=== PATIENT | male | born 1945 | race Caucasian/White ===

== ENCOUNTER → 2016-09-08 | Outpatient (CLI) | payer OTHER ==
[~2016-09-08] MED LIST: ASPCH81X PO; CALC-393 PO; COEN50CA22 PO; FLAX1CAP11 PO; OMEG10007 PO
[2016-09-08 12:49] LABS: ALT/SGPT 35 U/L (12-78); AST/SGOT 19 U/L (15-37); BLOOD UREA NITROGEN 19 mg/dl (7-18); BUN/CREATININE RATIO 19.2 (10-20); CALCIUM 8.8 mg/dl (8.5-10.1); CARBON DIOXIDE 28 mmol/L (21-32); CHLORIDE 109 mmol/L (98-107); GLUCOSE 94 mg/dl (70-99); POTASSIUM 4.2 mmol/L (3.5-5.1); SODIUM 142 mmol/L (136-145)
[2016-09-08 12:51] LABS: ALB/GLOB RATIO 1.2 (0.9-2); ALKALINE PHOSPHATASE 93 U/L (45-117); CHOLESTEROL 163 mg/dl (0-200); CHOLESTEROL/HDL RATIO 3.6; HDL CHOLESTEROL 45 mg/dl; LDL CHOLESTEROL CALCULATED 97 mg/dl; TRIGLYCERIDES 105 mg/dl (0-150); VERY LOW DENSITY LIPOPROT CALC 21 mg/dl
== END | disposition home or self-care (01) ==
LOC: C.LAB1850 10:00
PROVIDERS: ATTEND Internal Medicine
DX: Z86.39 Personal history of other endocrine, nutritional and metabolic disease (principal)

== ENCOUNTER → 2017-09-15 | Outpatient (CLI) | payer OTHER ==
[2017-09-15 09:33] LABS: BASO % 0.3 %; BASO ABS # 0.02 K/uL (0-0.2); EOS % 3.3 %; EOS ABS # 0.21 K/uL (0-0.5); HEMATOCRIT 39.4 % (42-52); HEMOGLOBIN 13.8 g/dL (14.0-18.0); IG# 0.02 K/uL (0.00-0.02); LYMPH % 43.9 %; MEAN CELL VOLUME 94.5 fL (80-100); MEAN CORPUSCULAR HEMOGLOBIN 33.1 pg (25-34); MEAN PLATELET VOLUME 10.5 fL (7.4-10.4); MONO % 12.4 %; MONO ABS # 0.79 K/uL (0.11-0.59); NEUT % 39.8 %; NEUT ABS # 2.54 K/uL (1.4-6.5); PLATELET COUNT 215 K/uL (130-400); RED CELL DISTRIBUTION WIDTH CV 12.8 % (11.5-14.5); WHITE BLOOD COUNT 6.38 K/uL (4.8-10.8)
[2017-09-15 09:56] LABS: ALBUMIN 3.8 gm/dl (3.4-5.0); ALKALINE PHOSPHATASE 92 U/L (45-117); ALT/SGPT 35 U/L (12-78); BLOOD UREA NITROGEN 21 mg/dl (7-18); CALCIUM 9.1 mg/dl (8.5-10.1); CARBON DIOXIDE 27 mmol/L (21-32); CREATININE 0.98 mg/dl (0.60-1.40); GLUCOSE 88 mg/dl (70-99); POTASSIUM 3.7 mmol/L (3.5-5.1); SODIUM 138 mmol/L (136-145); TOTAL PROTEIN 7.3 gm/dl (6.4-8.2)
[2017-09-15 10:00] LABS: AST/SGOT 22 U/L (15-37); CHOLESTEROL 171 mg/dl (0-200); LDL CHOLESTEROL CALCULATED 105 mg/dl
== END | disposition home or self-care (01) ==
LOC: C.LAB1850 07:13
PROVIDERS: ATTEND Internal Medicine
DX: R53.83 Other fatigue (principal); Z11.59 Encounter for screening for other viral diseases; R20.2 Paresthesia of skin; Z86.39 Personal history of other endocrine, nutritional and metabolic disease

== ENCOUNTER 2021-04-27 08:00 | Inpatient (IN) ==
--- NOTE | 2021-04-02 09:09 | PAT Medication Instructions ---
Medication Instructions Date of Service April 02, 2021 Home Medications Medication Instructions Recorded melatonin 5 mg capsule 5 mg PO HS PRN #1 cap 03/27/19 sodium,potassium,mag sulfates 17.5 See Rx Instructions PO .COMPLEX 03/19/21 gram-3.13 gram-1.6 gram oral soln #354 ml (Suprep Bowel Prep Kit) coenzyme Q10 50 mg capsule 200 mg PO QAM flaxseed oil 1,000 mg capsule 1,000 mg PO TID omega-3 acid ethyl esters 1 gram capsule 1 cap PO TID psyllium husk 3.4 gram/5.4 gram oral powder 1 tbs PO QPM zolpidem 10 mg tablet 5 - 10 mg PO HS PRN melatonin 5 mg capsule 5 mg PO HS PRN aspirin 81 mg tablet,delayed release 81 mg PO HS ASK your prescriber and surgeon aspirin 81 mg tablet,delayed release 81 mg PO HS STOP taking 2 weeks before surgery (or as soon as possible if surgery is within 2 weeks) coenzyme Q10 50 mg capsule 200 mg PO QAM flaxseed oil 1,000 mg capsule 1,000 mg PO TID omega-3 acid ethyl esters 1 gram capsule 1 cap PO TID Take evening before surgery psyllium husk 3.4 gram/5.4 gram oral powder 1 tbs PO QPM zolpidem 10 mg tablet 5 - 10 mg PO HS PRN (if needed) melatonin 5 mg capsule 5 mg PO HS PRN (if needed) Other Notes If you have any questions please call us at [phone] or [phone] or [phone] or [phone]
--- NOTE | 2021-04-05 13:35 | Anesthesiology Consultation ---
Date of Service April 05, 2021 Assessment & Plan (1) Encounter for pre-operative examination: - COVID screening: Per assessment on 04/05/2021: Travel screen negative, no known COVID-19 positive contacts or current COVID-19 related symptoms. Patient vaccinated. He states is planning drive to [place] with his 04/18/2021 to visit 3 additional family members including 4.5 year old and current plans are that he would not be back by needed interval for pre-op COVID testing. He is aware of th is necessity including need to follow CDC guidelines closely. He states will further discuss with family and review plan adjustments. Coordination between anesthesia department and urology office with patient electing plan to have COVID testing done am day before surgery understanding that would not have surgery time until resulted which may be day of surgery and that delay/if issues arise could result in surgery re-schedule. He verbalized full understanding and wishes to proceed with this plan accepting all risk. Chart Review Chart Review: Acceptable Risk for Surgery and Patient seen in Pre Admission Testing Teaching & Discussion Pre-Anesthesia Teaching/Discussion Notes: Instructed NPO after midnight before surgery, except medications with 15 cc of water. Medication instructions provided according to the PAT guidelines. History Surgery Operation Date: 04/27/21 09:50 Proposed Procedures p Laparoscopic Robotic Assisted Radical Prostatectomy, Possible Open, Possible Pelvic Lymph Node Dissection, Possible Suprapubic Tube Placement - Abe Casillas MD Height/Weight Height: 5 ft 8 in Weight: 82.3 kg Allergies Allergy/AdvReac Type Severity Reaction Status Date / Time No Known Drug Allergies Allergy Unknown . Verified 04/05/21 16:13 Medications Home Medications Medication Instructions Recorded Confirmed Last Taken coenzyme Q10 50 mg capsule 200 mg PO QAM cap 03/26/19 04/05/21 Unknown flaxseed oil 1,000 mg capsule 1,000 mg PO TID cap 03/26/19 04/05/21 Unknown omega-3 acid ethyl esters 1 gram 1 cap PO TID #30 cap 03/26/19 04/05/21 Unknown capsule psyllium husk 3.4 gram/5.4 gram 1 tbs PO QPM gm 03/26/19 04/05/21 Unknown oral powder zolpidem 10 mg tablet 5 - 10 mg PO HS PRN tab 03/26/19 04/05/21 Unknown melatonin 5 mg capsule 5 mg PO HS PRN #1 cap 03/27/19 04/05/21 Unknown aspirin 81 mg tablet,delayed 81 mg PO HS 04/01/21 04/05/21 Unknown release Past Medical History Medical History (Updated 04/05/21 @ 18:37 by PAULINO Cordero) Anxiety Arthralgia of multiple sites BPH (benign prostatic hyperplasia) Chronic prostatitis without hematuria COVID-19 virus detected Dx mid 12/2020 (through random testing/asymptomatic) Headache Occasional, chronic, stable, resolves with Excedrin, following with PCP History of anemia History of hyperlipidemia Insomnia Lumbar radiculopathy Osteoarthritis Prostate cancer Seborrheic keratosis Follows with dermatology annually, chronic, stable per pt Patient denies h/o stroke, seizures, heart attack, heart failure, DM, HTN, blood clots or blood transfusions. Exercise / Class Metabolic Activity II 4-5 Yardwork/Stairs/Walk up hill (no CP or SOB with 1 FOS) Past Family History Family History Father Colorectal cancer Mother Stroke Denies family history of Ovarian cancer Prostate cancer Diabetes Bipolar disorder Myocardial infarction Past Surgical History Surgical History History of colonoscopy History of esophagogastroduodenoscopy (EGD) S/P cholecystectomy S/P hernia repair S/P tonsillectomy Past Anesthesia History No Hx of Anesthesia Complications and No Family Hx of Anesthesia Complications History of PONV No Hx of PONV and No Hx of Motion Sickness Social History Smoking Status: Former smoker Do You Dip or Chew Tobacco: No Smoking End Date: quit 44 yrs ago, 1 pack/wk x 14 yrs Hx Alcohol Use: Yes Alcohol type: wine alcohol intake frequency: a few times a week (1 glass of wine) Hx Substance Use: No substance use type: does not use Review of Systems Infrequent snoring, denies witnessed apneas or sleep studies. Patient denies chest pain, shortness of breath, dyspnea on exertion, reflux, fever, chills, cough, wheezing, or palpitations. Physical Exam Vital Signs Vitals BP 162/82 P 71 TEMP 97.7 SP02 98% on RA RESP 17 Physical Full cervical extension range of motion without pain Full TMJ range of motion TMD 3.5 finger breaths Mallampati Score 3 Dentition: intact, denies missing, loose, chipped teeth, caps/crowns or implants Lungs: normal respiratory effort. Clear throughout to auscultation, no adventitious breath sounds Cardiac: regular rate and rhythm, no murmurs noted Carotid arteries: negative bruit bilat Extremities: no distal extremity edema Lab Results Anesthesia Preop Results Results Anesthesia Widget: WBC 7.50 K/uL (4.8-10.8) 04/05/21 Hgb 13.1 g/dL (14.0-18.0) L 04/05/21 Hct 37.4 % (42-52) L 04/05/21 Plt 240 K/uL (130-400) 04/05/21 Na 141 mmol/L (136-145) 04/05/21 K 3.8 mmol/L (3.5-5.1) 04/05/21 Cl 108 mmol/L (98-107) H 04/05/21 CO2 25 mmol/L (21-32) 04/05/21 BUN 22 mg/dl (7-18) H 04/05/21 Creat 1.08 mg/dl (0.6-1.4) 04/05/21 Glucose Level 112 mg/dl (70-99) H 04/05/21 PT 10.4 Seconds (9.0-12.0) 04/05/21 INR 1.0 (0.9-1.1) 04/05/21 Urine Color Yellow 04/05/21 Urine Appearance Clear (Clear) 04/05/21 Urine pH 5.0 (4.5-7.5) 04/05/21 Urine Specific [place] 1.017 (1.000-1.030) 04/05/21 Urine Protein Negative (Negative) 04/05/21 Urine Glucose (UA) Negative (Negative) 04/05/21 Urine Ketones Negative (Negative) 04/05/21 Urine Blood Negative (Negative) 04/05/21 Urine Nitrite Negative (Negative) 04/05/21 Urine Bilirubin Negative (Negative) 04/05/21 Urine Urobilinogen Negative (Negative) 04/05/21 Urine Leukocyte Esterase Negative (Negative) 04/05/21 Blood Type O Positive 04/05/21 Antibody Screen NEGATIVE 04/05/21 Testing Electrocardiogram Date: 04/05/21 Sinus rhythm with 1st degree A-V block, rate 66 bpm. Right bundle branch block Abnormal ECG No previous ECGs available Confirmed by Josiah Garner. Chest X-Ray Date: 04/05/21 IMPRESSION: No acute cardiopulmonary findings.
[~2021-04-27 08:00] MED LIST changes: -ASPCH81X PO; -CALC-393 PO; -COEN50CA22 PO; -FLAX1CAP11 PO; +HEPARIN SOD 5,000 UNIT/0.5 ML VIAL SQ SCH; +LACTATED RINGER'S 1,000 ML IV SCH; +LR 15ML/HR IV SCH; -OMEG10007 PO; +ceFAZolin 2000MG 2,000 MG/15 ML SYR IV SCH
[2021-04-27] MEDS ORDERED: ATROPINE SULFATE 0.1 MG/ML 10ML SYR IV PRN (10:16)
[2021-04-27] MEDS ORDERED: HYDROmorphone INJ 2 MG/ML SYR/VIAL IV PRN (10:16)
[2021-04-27] MEDS ORDERED: ePHEDrine sulfate 50 MG/ML AMP IV PRN (10:16)
[2021-04-27] MEDS ORDERED: ONDANSETRON INJ 2 MG/ML 2 ML VIAL IV PRN ×2 (10:16→18:35)
--- NOTE | 2021-04-27 10:16 | Anesthesiology Consultation ---
Date of Service April 27, 2021 Assessment & Plan Chart Review Chart Review: Acceptable Risk for Surgery and Patient NOT seen in Pre Admission Testing Consults Requested none ASA ASA2 Proposed Anesthesia Anesthesia Type: General Risk / Benefits Reviewed With: PT / POA / Parent / Guardian, Accepts Plan and Informed Consent Obtained History Surgery Operation Date: 04/27/21 09:50 Proposed Procedures p Laparoscopic Robotic Assisted Radical Prostatectomy, Possible Open, Possible Pelvic Lymph Node Dissection, Possible Suprapubic Tube Placement - Abe Casillas MD Height/Weight Height: 5 ft 8 in Weight: 80.6 kg Allergies Allergy/AdvReac Type Severity Reaction Status Date / Time No Known Drug Allergies Allergy Unknown . Verified 04/27/21 08:49 Medications Home Medications Medication Instructions Recorded Confirmed Last Taken coenzyme Q10 50 mg capsule 200 mg PO QAM cap 03/26/19 04/27/21 04/06/21 07:30 flaxseed oil 1,000 mg capsule 1,000 mg PO TID cap 03/26/19 04/27/21 04/06/21 18:00 omega-3 acid ethyl esters 1 gram 1 cap PO TID #30 cap 03/26/19 04/27/21 04/06/21 18:00 capsule psyllium husk 3.4 gram/5.4 gram 1 tbs PO QPM gm 03/26/19 04/27/21 04/20/21 10:00 oral powder zolpidem 10 mg tablet 5 - 10 mg PO HS PRN tab 03/26/19 04/27/21 Unknown melatonin 5 mg capsule 5 mg PO HS PRN #1 cap 03/27/19 04/27/21 04/06/21 23:00 aspirin 81 mg tablet,delayed 81 mg PO HS 04/01/21 04/27/21 04/06/21 23:00 release Active Medications Generic Name Dose Route Start Last Admin Trade Name Freq PRN Reason Stop Dose Admin Heparin Sodium (Porcine) 5,000 units 04/27/21 06:00 04/27/21 08:57 Heparin Sod 5,000 Unit/0.5 Ml Vial SQ 04/27/21 18:00 5,000 units PREOP ROBBIE Administration Lactated Ringer's 1,000 mls @ 15 mls/hr 04/27/21 06:00 04/27/21 08:56 Lr IV 04/28/21 05:59 15 mls/hr .Q24H ROBBIE Administration NPO Date Last Intake of Fluids: 04/26/21 Time Last Intake of Fluids: 22:30 Date Last Intake of Solids: 04/26/21 Last Intake of Solids Comment: 0800 Past Medical History Medical History Anxiety Arthralgia of multiple sites BPH (benign prostatic hyperplasia) Chronic prostatitis without hematuria COVID-19 virus detected Dx mid 12/2020 (through random testing/asymptomatic) Headache Occasional, chronic, stable, resolves with Excedrin, following with PCP History of anemia History of hyperlipidemia Insomnia Lumbar radiculopathy Osteoarthritis Prostate cancer Seborrheic keratosis Follows with dermatology annually, chronic, stable per pt Exercise / Class Metabolic Activity II 4-5 Yardwork/Stairs/Walk up hill Past Family History Family History Father Colorectal cancer Mother Stroke Denies family history of Ovarian cancer Prostate cancer Diabetes Bipolar disorder Myocardial infarction Past Surgical History Surgical History History of colonoscopy History of esophagogastroduodenoscopy (EGD) S/P cholecystectomy S/P hernia repair S/P tonsillectomy Past Anesthesia History No Hx of Anesthesia Complications and No Family Hx of Anesthesia Complications History of PONV No Hx of PONV and No Hx of Motion Sickness Social History Smoking Status: Former smoker Do You Dip or Chew Tobacco: No Smoking End Date: quit 44 yrs ago, 1 pack/wk x 14 yrs Hx Alcohol Use: Yes Alcohol type: wine alcohol intake frequency: a few times a week (1 glass of wine) Hx Substance Use: No substance use type: does not use Physical Exam Vital Signs Last Vital Signs Temp 37 C 04/27/21 08:20 Pulse 72 04/27/21 08:20 Resp 20 04/27/21 08:20 BP 167/86 H 04/27/21 08:20 Pulse Ox 98 04/27/21 08:20 ENMT Mouth: no dentition abnormality Thyromental Distance: > or= 3.5 Finger Breadths Mallampati Class: II Neck normal visual inspection Respiratory normal respiratory effort Auscultation: lungs clear to auscultation bilaterally Cardiovascular Rate/Rhythm: regular rate and regular rhythm Psychiatric Orientation: alert Testing Electrocardiogram Date: 04/05/21 Sinus rhythm with 1st degree A-V block, rate 66 bpm. Right bundle branch block Abnormal ECG No previous ECGs available Confirmed by Josiah Garner. Chest X-Ray Date: 04/05/21 IMPRESSION: No acute cardiopulmonary findings.
[2021-04-27] MEDS ORDERED: ROCURONIUM BROMIDE 10 MG/ML 5 ML VIAL IV ONE ×2 (10:42→13:03)
[2021-04-27] MEDS ORDERED: PROPOFOL IV EMULSION 10 MG/ML 20 ML VIAL IV ONE (10:42)
[2021-04-27] MEDS ORDERED: fentaNYL citrate 100 MCG/2 ML VIAL ONE ×2 (10:42→13:03)
[2021-04-27] MEDS ORDERED: ONDANSETRON INJ 2 MG/ML 2 ML VIAL ONE (10:42)
[2021-04-27] MEDS ORDERED: LIDOCAINE 2% 2 ML VIAL/AMP(20MG/ML) INFIL ONE (10:42)
[2021-04-27] MEDS ORDERED: DEXAMETHASONE SOD INJ 4 MG/ML VIAL ONE (10:42)
--- NOTE | 2021-04-27 11:19 | History & Physical Bridge Note ---
Date of Service April 27, 2021 History & Physical Bridge Note I have examined the patient, reviewed the History & Physical and in the interval since the performance of the History & Physical I have noted the following changes of clinical significance: no changes noted
[2021-04-27] MEDS ORDERED: MIDAZOLAM HCL 1 MG/ML 2ML VIAL ONE (11:50)
[2021-04-27] MEDS ORDERED: BELLADONNA/OPIUM SUPP 60 MG SUPP PR ONE (11:50)
[2021-04-27] MEDS ORDERED: BUPIVACAINE 0.5 % 5 MG/1 ML MPF 30ML VIAL ONE (11:54)
[2021-04-27] MEDS ORDERED: SURGICEL ABSORB HEMOSTAT 2IN X 14IN TOP ONE (13:10)
[2021-04-27] MEDS ORDERED: KETOROLAC 30 MG/ML VIAL ONE (15:04)
[2021-04-27 15:47] LABS: Basophils # (auto) 0.02 K/uL (0-0.2); Basophils % (auto) 0.1 %; Eosinophils # (auto) 0.02 K/uL (0-0.5); Eosinophils % (auto) 0.1 %; Hematocrit (blood only) 36.9 % (42-52); Hemoglobin 12.7 g/dL (14.0-18.0); Immature Granulocytes # (auto) 0.03 K/uL (0.00-0.02); Immature Granulocytes % (auto) 0.2 %; Lymphocytes # (auto) 1.58 K/uL (1.2-3.4); Lymphocytes % (auto) 8.8 %; Mean Corpuscular Hemoglobin 33.1 pg (25-34); Mean Corpuscular Volume 96.1 fL (80-100); Mean Platelet Volume 10.1 fL (7.4-10.4); Monocytes # (auto) 0.56 K/uL (0.11-0.59); Monocytes % (auto) 3.1 %; Neutrophils # (auto) 15.65 K/uL (1.4-6.5); Neutrophils % (auto) 87.7 %; Nucleated RBC # (auto) 0.03 K/uL (0-0); Nucleated RBC % (auto) 0.2 %; Platelet Count 229 K/uL (130-400); RDW Standard Deviation 45.2 fL (36.4-46.3); Red Blood Count 3.84 M/uL (4.7-6.1); White Blood Count 17.86 K/uL (4.8-10.8)
[2021-04-27] MEDS: fentaNYL citrate 100 MCG/2 ML VIAL IV PRN ×2 (15:48→16:30)
--- NOTE | 2021-04-27 15:52 | Anesthesiology Progress Note ---
Date of Service April 27, 2021 Anesthesia Post Procedure Vital Signs Vital Signs: Temp Pulse Pulse Resp BP Pulse Ox 04/27/21 15:40 66 18 121/64 99 04/27/21 15:31 36.6 C 70 20 124/60 99 04/27/21 08:20 37 C 72 20 167/86 H 98 Transfer of Care Handoff Completed per policy Notes Mental Status: alert / awake / arousable Patient Amnestic to Procedure: Yes Nausea / Vomiting: adequately controlled Pain: adequately controlled Airway Patency, RR, SpO2: stable & adequate BP & HR: stable & adequate Hydration State: stable & adequate Anesthetic Complications: no major complications apparent
[2021-04-27 15:56] LABS: Mean Corpuscular Hgb Conc 34.4 g/dL (32-36)
[2021-04-27 16:03] LABS: Calcium 8.4 mg/dl (8.5-10.1); Creatinine Clr Calc Pharmacy 50.2 ml/min; Est GFR (African American) 65.3 ml/min; Est GFR (Non-African American) 56.4 ml/min; Potassium 4.7 mmol/L (3.5-5.1)
--- NOTE | 2021-04-27 16:13 | Operative Report ---
PG Post Operative Report Pre & Post Diagnosis Operation Date: 04/27/21 09:50 Pre-Op Diagnosis: Prostate Cancer Post-Op Diagnosis: Prostate Cancer I identified the patient and participated in the time-out.: Yes Procedure Operation Date: 04/27/21 09:50 Actual Procedures p Robotic Assisted Laparoscopic Prostatectomy, and Bilateral Pelvic Lymph Node Dissection(Not Applicable) - Abe Casillas MD Surgeon Tyron Casillas MD Slitter Scorer Cut Off Operator Mckayla Roland Estimated Blood Loss 100 Findings Consistent with Post-Op Diagnosis Specimens 1. Periprostatic fat 2. Prostate and seminal vesicles 3. Right pelvic lymph nodes 4. Left pelvic lymph nodes Description of Procedure The patient was identified in the preoperative holding area, appropriate informed consents were reviewed and completed, and he was transported to the operating suite. Subcutaneous heparin was administered in the pre-operative holding area. Upon arrival in the operating suite, he received appropriate antibiotics and general anesthesia. He was positioned in dorsal lithotomy, a B&O suppository was inserted after digital rectal exam, and he was prepped and draped in standard fashion. A Palomino catheter was inserted in the sterile field. A Veress needle was passed per umbilicus with uniform insufflation of the abdomen to 15mmHg. He was placed in steep Trendelenburg position. A periumbilical incision was then made to accommodate a 12mm Visiport with 10mm 0degree laparoscope. Inspection of the abdomen was carried out, and there was no evidence of traumatic entry or injury secondary to the Veress needle. After confirming a clear anterior abdominal wall, ports were subsequently placed in standard robotic prostatectomy fashion without incident. To begin the robotic portion of the case, the left lateral aspect of the sigmoid was mobilized off of the left pelvic side wall to allow the pouch of Walker to be appropriately visualized. I then made an incision in the pouch of Walker, overlying the seminal vesicles. Both SVs as well as the ampullae of the vasa were entirely dissected, with the vasa transected 3cm from the prostate. The medial umbilical ligaments were then controlled with bipolar electrocautery just inferior to the umbilicus. Following cauterization, they were divided utilizing monopolar cautery. A peritoneal incision was carried from this location to the medial aspect of the internal inguinal rings bilaterally with care to avoid opening through the ring. This incision was concluded when the vas deferens was reached. Dissection of the bladder and prostate off of the posterior aspect of the pubic arch was completed allowing full visualization of the prostate. The fat overlying the prostate was removed en bloc and passed off the table as a specimen labeled "periprostatic fat". The endopelvic fascia was cleared during this portion of the procedure, and subsequently opened - first on the right and then the left. The incision through the endopelvic fascia began near the prostate-bladder junction and was carried to the apex with extreme care to preserve all lateral levator musculature as well as the periurethral musculature and sphincter complex. I additionally preserved the puboprostatic ligaments. I then controlled the DVC with a 3-0 V-lock suture in overlapping/figure of 8 fashion. The lymph node dissection was then conducted. External iliac vessels were identified on the pelvic side wall. The packet of fat and lymphatic tissue that resides just under the iliac vein was elevated and off of the vein with a split and roll technique. The packet was dissected laterally to the circumflex vein and distally to the obturator nerve which was preserved. The proximal aspect of the packet was carried towards the bifurcation of the iliac vessels. A combination of monopolar and bipolar cautery were used to assist with control. After completing the dissection on both sides, the packets were collected and passed off of the table as specimens labeled "pelvic lymph nodes". My attention then returned to the prostate, with identification of the bladder neck aided by gentle traction on the Palomino catheter and lateral to medial pressure at the presumed level of the bladder neck with the robotic instruments. An anterior cystotomy was made, the Palomino balloon deflated and the catheter guided through the incision to allow anterior retraction. I attempted to preserve maximal bladder neck musculature as I circumferentially dissected around the bladder neck. After incision through the posterior aspect of the mucosa, the dissection was carried through detrusor muscle until the bilateral ampullae of the vasa were identified. The previously dissected vasa and SVs were brought through the incision and used to elevated the prostate anteriorly. A posterior plane behind the prostate was then developed - splitting Denonvilliers's fascia. This dissection was carried as far as possible towards the apex as well as far as possible laterally. An incision in the lateral prostatic fascia was then made bilaterally to facilitate control of the vascular pedicles and preservation of the nerve bundles. Vasculature running along the posterior/lateral aspect of the prostate was preserved as well as the tissue containing the nerves. Of note, I performed a relatively aggressive nerve sparing procedure on the right and a much more cautious approach on the left given his pathology. The pedicles were then controlled with a series of Weck clips. The apical attachments of the prostate were remaining at that stage. The DVC was divided after control with bipolar cautery over the prostate. Continuous inspection from anterior and lateral views allowed me to closely follow the apical contour of the prostate and maximally preserve urethral length and tissue. The prostate was entirely freed at that point, and collected in an EndoCatch bag before being moved out of the field of vision. Hemostasis was confirmed and anastomosis of the bladder and urethra was completed utilizing a double armed V- Lock stitch. A new Palomino catheter was inserted and the anastomosis tested with irrigation. There was no evidence of leak. A ryanne style stitch was placed bilaterally to functionally marsupialize the area of the lymph node dissection. The robot was undocked, the specimen extracted through expansion of the karma- umbilical camera port. The fascia was closed with a series of 0-PDS figure of 8 stitches. The right fast food assistant restaurant manager port was closed in two layers - with a figure of 8 0-Vicryl to reapproximate the fascia followed by 4-0 Monocryl to close the skin. Monocryl was used to close all other skin incisions. All wounds were dressed with Dermabond. The case was concluded and the patient taken to the PACU in stable condition. Mckayla Roland assisted from incision to closure. I attest to the content of the Intraoperative Record and any orders documented therein. Any exceptions are noted below.
[2021-04-27] MEDS ORDERED: MoRPHine SULFATE 4 MG/ML 1 ML CARP\\VIAL IV PRN (18:35)
[2021-04-27] MEDS ORDERED: oxyCODONE HCL IR 5 MG TAB (IMMEDIATE RELEASE) PO PRN ×2 (18:35)
[2021-04-27] MEDS ORDERED: MoRPHine SULFATE 2 MG/ML CARP IV PRN (18:35)
[2021-04-27] MEDS ORDERED: ZOLPIDEM TARTRATE 5 MG TAB PO PRN (18:35)
[2021-04-27] MEDS ORDERED: ACETAMINOPHEN 325 MG TAB PO PRN (18:35)
[2021-04-27] MEDS ORDERED: oxyCODONE HCL IR 5 MG TAB (IMMEDIATE RELEASE) ONE (18:39)
[2021-04-27] MEDS: LACTATED RINGER'S 1,000 ML IV SCH (18:46)
[2021-04-27] MEDS ORDERED: MELATONIN 3 MG TAB PO PRN (19:35)
[2021-04-27] MEDS: HEPARIN SOD 5,000 UNIT/0.5 ML VIAL SQ SCH (20:44)
[2021-04-27] MEDS: ceFAZolin 2000MG 2,000 MG/15 ML SYR IV SCH (20:44)
[2021-04-27] MEDS ORDERED: PSYLLIUM HUSK PO SCH (21:00)
[2021-04-28] MEDS: LACTATED RINGER'S 1,000 ML IV SCH (02:46)
[2021-04-28] MEDS: ceFAZolin 2000MG 2,000 MG/15 ML SYR IV SCH (03:47)
[2021-04-28 06:30] LABS: Hematocrit (blood only) 33.6 % (42-52); Hemoglobin 11.3 g/dL (14.0-18.0); Immature Granulocytes # (auto) 0.02 K/uL (0.00-0.02); Immature Granulocytes % (auto) 0.2 %; Lymphocytes # (auto) 1.61 K/uL (1.2-3.4); Lymphocytes % (auto) 12.2 %; Mean Corpuscular Hemoglobin 32.3 pg (25-34); Mean Corpuscular Hgb Conc 33.6 g/dL (32-36); Monocytes # (auto) 1.48 K/uL (0.11-0.59); Monocytes % (auto) 11.2 %; Neutrophils # (auto) 10.07 K/uL (1.4-6.5); Neutrophils % (auto) 76.4 %; Platelet Count 211 K/uL (130-400); RDW Coefficient of Variation 12.9 % (11.5-14.5); RDW Standard Deviation 45.2 fL (36.4-46.3); White Blood Count 13.18 K/uL (4.8-10.8)
[2021-04-28 07:14] LABS: BUN Creatinine Ratio 20.8 (10-20); Calcium 8.4 mg/dl (8.5-10.1); Creatinine Clr Calc Pharmacy 50.6 ml/min; Est GFR (Non-African American) 56.9 ml/min
[2021-04-28] MEDS: HEPARIN SOD 5,000 UNIT/0.5 ML VIAL SQ SCH (08:15)
--- NOTE | 2021-04-28 08:35 | Urology Progress Note ---
Date of Service April 28, 2021 Assessment & Plan (1) Prostate cancer: Plan: Postop day #1 status post prostatectomy Doing very well Labs stable Good urine output Clear urine Abdomen soft and incisions appropriate Plan for diet advance this morning and discharge home later today Admission and Anticipated Discharge Date Admission Date: April 27, 2021 Subjective No issues overnight Pain is controlled Urine cleared Labs stable Tolerating a diet without nausea Physical Exam Physical Exam: Incisions appropriate Palomino clear Results & Data ([facility]) Vital Signs (Past 12 Hours) Vital Signs Temp Pulse Resp BP Pulse Ox 04/28/21 07:00 36.5 C 62 16 114/62 94 PG Care Time/CCT Total # of Minutes Spent Total Time Spent with Patient: Total time spent is greater than 50% in coordination of care (as documented) at patient's floor/unit and/or counseling patient: Coding Level of Care Code 40565 Subseq Hosp Care Lvl 2 Diagnoses Prostate cancer C61
--- NOTE | 2021-04-28 13:00 | Discharge Summary ---
Date of Service April 28, 2021 Admission HPI Per Admitting Provider 76 yo M with prostate cancer here for radical prostatectomy. Admission Exam Per Admitting Provider Constitutional well developed and well nourished; no acute distress and not ill appearing Eyes no eyelid abnormality Neck + abnormal visual inspection Respiratory normal respiratory effort, lungs clear to auscultation able to speak in complete sentences; no respiratory distress Cardiovascular RRR, no murmur, no edema Gastrointestinal (Abdomen) normal bowel sounds, soft, nontender, no hepatosplenomegaly Inspection/Auscultation: abdomen normal to inspection; abdomen not distended Musculoskeletal Head/Neck/Chest: normocephalic Skin no rashes, warm and dry Neurologic normal touch/pain/proprioception Psychiatric Orientation: alert and oriented x 3 Genitourinary no CVA tenderness Principal Diagnosis Prostate cancer Discharge Exam Physical Exam:Incisions appropriate Palom[place] clear Discharge Data Allergies Allergy/AdvReac Type Severity Reaction Status Date / Time No Known Drug Allergies Allergy Unknown . Verified 04/27/21 08:49 Procedures Performed Operation Date: 04/27/21 09:50 Actual Procedures p Robotic Assisted Laparoscopic Prostatectomy, and Bilateral Pelvic Lymph Node Dissection(Not Applicable) - Abe Casillas MD Hospital Course (1) Prostate cancer: (1) Prostate cancer: Plan: Postop day #1 status post prostatectomy Doing very well Labs stable Good urine output Clear urine Abdomen soft and incisions appropriate Plan for diet advance this morning and discharge home later today Patient reassessed and doing very well, tolerating diet Stable for discharge to home today - orders placed Discharge to home with Palomino catheter Follow-up appointments in place Expected clinical course reviewed, all questions answered Total Time Total Time Spent Total Time Spent (In Minutes): 29 Discharge Plan Discharge Items Patient Disposition: Home - Self-Care Reason For Visit: Prostate Cancer Discharge Diagnosis: Prostate Cancer Activity: Per Instructions section Lifting: No more than 25 pounds Bathing Comment: Okay to shower after discharge, no tub bath or soaking Sexual Activity: Wait until after follow-up appointment Exercise/Sports: Wait until after follow-up appointment Driving/Machine Use: No driving while Non-emergency contact: Surgeon Call non-emergency contact if: you have any medication questions, your pain is not controlled, your pain is worsening, your pain is concerning for you, you have a fever and your temperature is above 101 Follow-up/Referrals: Purvi Chao V., MD [Primary Care Provider] - Abe Casillas MD [Physician] - 05/10/21 4:00 pm (Post op appointment) [facility],Nurse [FAKE FOR SCHEDULES] - 05/04/21 9:00 am (Voiding trial) Diet: Regular Addtl Attending Provider Instructions: Please take all medications as prescribed and keep all follow-ups as scheduled. Please call our office at [phone] with any questions, concerns or need to reschedule appointments for any reason. We are happy to assist you. We have sent an antibiotic to your pharmacy of choice. Please begin antibiotic as prescribed the day BEFORE your scheduled voiding trial at [facility]. Please continue antibiotic every 12 hours through the day AFTER your voiding trial. Activity: We recommend having someone with you for the first few days after surgery to help care for you. For the first 2 weeks after surgery, we would like you to get up and walk around your house. However, we recommend limit physical activity that would increase your heart rate. This will allow your body to rest and heal. Take naps if you feel tired. Don't lift anything heavier than 10 pounds, mow the law or ride a bicycle until your follow-up appointment. Please avoid long car rides. Home Care: Unless directed otherwise, drink 6 to 8 glasses of water a day (enough to keep your urine light colored). This will also help keep a healthy flow of urine. We recommend using a stool softener for the first two weeks to avoid constipation. Palomino Catheter or Suprapubic Catheter care: Keep the catheter well secured with either a leg back or leg strap with large bag. Empty your bag when it's about half full. You may notice some blood in the bag. This is normal after surgery and while the catheter is in place. Use mild soap (such as Dove or Dial) and water to wash the catheter and the head of your penis daily, or more frequently if needed. Return to your normal diet, we encourage good protein intake to promote healing. You may shower as normal. Please avoid tub baths or soaking until catheter removed and incisions well healed. Wearing sweat pants while you have the catheter is recommended, they will be more comfortable. Follow-up Your follow up appointments for having your catheter removed, and follow up with your physician should already be scheduled. If you have any questions regarding this, please contact our office. Your final pathology report will be discussed at your physician follow-up appointment. Call [facility] at [phone] right away if you have any of the following: Chest pain or trouble breathing (call 911 or go to the hospital) Fever of 101F or higher, uncontrolled vomiting Heavy bleeding, clots, or bright red blood from the catheter Catheter that falls out or stops draining Foul-smelling discharge from your catheter Redness, swelling, warmth, or increased pain at your incision site Drainage, pus, or bleeding from your incision Pending Studies at Discharge: Yes Studies:: Pathology Stand-Alone Forms: My [facility], Smoking Cessation Medications and DC Order Prescriptions: New docusate sodium [Colace] 100 mg capsule 100 mg PO BID Qty: 60 RF: 0 oxycodone-acetaminophen [Percocet] 5-325 mg tablet 1 tab PO TID PRN (Reason: pain) Qty: 10 RF: 0 ciprofloxacin HCl 500 mg tablet 500 mg PO BID 3 Days Qty: 6 RF: 0 Continued sod sulf-pot chloride-mag sulf [Sutab] 1.479-0.188- 0.225 gram tablet RF: 0 psyllium husk 3.4 gram/5.4 gram powder 1 tbs PO QPM RF: 0 coenzyme Q10 50 mg capsule 200 mg PO QAM RF: 0 omega-3 acid ethyl esters 1 gram capsule 1 cap PO TID Qty: 30 RF: 0 flaxseed oil 1,000 mg capsule 1,000 mg PO TID RF: 0 zolpidem 10 mg tablet 5 - 10 mg PO HS PRN (Reason: sleep) RF: 0 melatonin 5 mg capsule 5 mg PO HS PRN (Reason: sleep ) Qty: 1 RF: 0 aspirin 81 mg Tablet,Delayed Release (Dr/Ec) 81 mg PO HS RF: 0 Discharge Orders: Discharge Order (Routine); Ordered 04/28/21 Ordered By: Mckayla Martinez/Other Patient Handouts: Indwelling Urinary Catheter Dc, ED Palomino Catheter, Care Admission Data Admit Date/Time: 04/27/21 15:30 Attending Provider: Abe Casillas Admit Provider: Abe Casillas Primary Care Provider: Purvi Chao V. Other Interventions: Discharge Summary Assessment (RN) Last Done: 04/28/21 11:59 Coding Level of Care Code D/C DAY MANAGEMENT <30 MINS Diagnoses Prostate cancer C61
== END 2021-04-28 13:20 | disposition home or self-care (01) | DRG 708 ==
LOC: ASU 08:00 → PACUINP 15:30 → ASUINP 04-28 06:55
DX: C61 Malignant neoplasm of prostate; Z20.822 Contact with and (suspected) exposure to COVID-19; Z79.82 Long term (current) use of aspirin; Z87.891 Personal history of nicotine dependence

== ENCOUNTER 2024-08-02 12:29 | Observation (INO) ==
[2024-08-02 13:24] LABS: Basophils # (auto) 0.04 K/uL (0.00-0.20); Basophils % (auto) 0.4 %; Eosinophils # (auto) 0.44 K/uL (0.00-0.50); Eosinophils % (auto) 4.3 %; Hematocrit (blood only) 33.2 % (42.0-52.0); Hemoglobin 11.7 g/dl (14.0-18.0); Immature Granulocytes # (auto) 0.05 K/uL (0.01-0.20); Immature Granulocytes % (auto) 0.5 %; Lymphocytes # (auto) 2.39 K/uL (1.20-3.40); Lymphocytes % (auto) 23.2 %; Mean Corpuscular Hemoglobin 31.6 pg (25.0-34.0); Mean Corpuscular Hgb Conc 35.2 g/dL (32.0-36.0); Mean Corpuscular Volume 89.7 fL (80.0-100.0); Mean Platelet Volume 9.4 fL (9.4-12.4); Monocytes # (auto) 1.43 K/uL (0.11-0.59); Monocytes % (auto) 13.9 %; Neutrophils # (auto) 5.95 K/uL (1.40-6.50); Neutrophils % (auto) 57.7 %; Platelet Count 348 K/uL (130-400); RDW Coefficient of Variation 13.4 % (11.5-14.5); RDW Standard Deviation 43.7 fL (36.4-46.3)
--- NOTE | 2024-08-02 13:27 | Emergency Department Note ---
Impression & Plan Multifocal pneumonia, Failure of outpatient treatment ED Provider Note ED Provider Note NAME: WAYNE LUNA AGE:79 SEX: Male : 1945 ARRIVES VIA: private vehicle INFORMANT: Patient ED PROVIDER(s): Mandi Parekh DO CHIEF COMPLAINT: concern for persistent pneumonia HPI: This is a 79-year-old male presents emergency department due to concern for persistent pneumonia. Patient reports persistent cough and dyspnea with any movement or exertion. Patient states he first began feeling ill and May after his had a cold. He states he saw his PCP the beginning of June and was first started on antibiotics. He states he was initially started on Augmentin, then due to persistent symptoms a Z-Jerrell, and then eventually Levaquin. He did have an outpatient CAT scan the end of June that showed a multifocal pneumonia. Patient was seen again in the ER on Monday here and discharged on cefdinir and doxycycline. Patient denies any prior history of pneumonia. Denies any history of asthma or COPD. Patient states he did briefly smoke in his youth, estimating 1 pack over the course of 1 week for a few years. No recent travel or other known sick contacts. He does not use any immunomodulating medications. We did discuss occupational history -no significant occupational history based on our discussion at bedside. Patient states his cough is only intermittently productive of a clear sputum. He has not seen any hemoptysis. He denies any history of significant GERD, difficulty swallowing, or episodes of choking. PAST MEDICAL HISTORY:See Below PAST SURGICAL HISTORY:See Below FAMILY HISTORY:See Below SOCIAL HISTORY:See Below HOME MEDICATIONS:See Below ALLERGIES:See Below VITALS:See Below PHYSICAL EXAMINATION: GENERAL: alert, well appearing, well nourished, no distress, non-toxic EYE EXAM: normal conjunctiva, PERRL and EOM's grossly intact OROPHARYNX: no exudate, no erythema, lips, buccal mucosa, and tongue normal and mucous membranes are moist NECK: supple, no nuchal rigidity, no adenopathy, non-tender LUNGS: Normal chest wall mechanics, no w/r/r, markedly diminished at the right base posteriorly, tachypnea noted during exam and with any conversation, frequent coarse cough HEART: no murmurs, S1 normal and S2 normal ABDOMEN: abdomen soft, non-tender, normo-active bowel sounds, no masses, no rebound or guarding. BACK: Back is symmetrical on inspection and there is no deformity SKIN: no rashes, petechiae, orbruising UPPER EXTREMITIES: upper extremities are grossly normal. FROM, nml pulses b/l. LOWER EXTREMITIES: No pitting edema. FROM, nml pulses b/l. NEURO EXAM: Normal sensorium, cranial nerves II-XII grossly intact, normal speech, no facial droop,nogross weakness of arms, no gross weakness of legs. Gross sensation intact. No ataxia. Vital Signs: reviewed and remarkable Differential Diagnosis: pneumonia, bronchitis, COPD/Asthma exacerbation, pneumothorax, pulmonary embolism, congestive heart failure, acute coronary syndrome, as well as others were considered MEDICAL DECISION MAKING: This is a 79 yo male who presents after being referred by his PCP due to concern for persistent pneumonia despite several outpatient antibiotics. He was afebrile and VS stable. No overt hypoxia however patient with tachypnea and increased wob at bedside with frequent coarse cough. Labs drawn and sent, IV established, EKG and CXR performed and interpreted at bedside, and patient placed on telemetry. After further discussion of pulmonary hx, occupational hx, and social history, we discussed repeat CT imaging. He was sent for CTA chest which showed worsening pneumonia compared to CT 2 weeks ago. Patient started on IV vanc and zosyn in the ER and case discussed with the hospitalist team for additional evaluation and mgmt. Consultation(s): 1452: Discussed with Dr. Voss, patient's PCP, via [place] [facility]. 1518: Discussed with Dr. Lloyd, [facility] hospitalist team, for additional evaluation and management. ER Treatment Provided: See below Diagnostics Interpreted By Me: -ECG: Normal sinus at 88, leftward axis, right bundle branch block, nonspecific ST/T wave changes -Cardiac Monitoring: An order was placed for continuous cardiac monitoring. The monitor shows a rate of 72 with normal sinus rhythm. -Laboratory studies: As stated above and show below. -Imaging studies: cxr: Right lower lobe pneumonia, no wide mediastinum, no cardiomegaly Triage Nursing Note Reviewed Prior/Outside Records Reviewed - outpt CT chest 06/2024 reviewed Past Med/Surg History Problem List (Updated 08/04/24 @ 00:08 by Background Daemon) Failure of outpatient treatment (Acute) Multifocal pneumonia (Acute) Pneumonia (Acute) Abnormal finding on lung imaging SOBOE (shortness of breath on exertion) CAP (community acquired pneumonia) Tendinitis of right knee Left knee tendonitis Left thumb sprain Acute medical illness Sleep disturbance Right hip pain Health care maintenance 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 Scot FAIRG Anemia [place] of foot Hyperglycemia Stress incontinence Vitamin D deficiency disease Left leg pain History of hyperlipidemia Arthralgia of multiple sites Anxiety Medical History Left axillary pain Osteoarthritis History of anemia COVID-19 virus detected Chronic prostatitis without hematuria BPH (benign prostatic hyperplasia) Headache Insomnia Lumbar radiculopathy Seborrheic keratosis Surgical History History of right cataract surgery Hx of prostatectomy History of esophagogastroduodenoscopy (EGD) History of colonoscopy S/P tonsillectomy S/P hernia repair S/P cholecystectomy Family History Father Colorectal cancer Mother Stroke Brother COPD (chronic obstructive pulmonary disease) Denies family history of Ovarian cancer Prostate cancer Diabetes Bipolar disorder Myocardial infarction Social History Smoking Status: Never smoker Tobacco Type: Declines Second Hand Exposure: No; Do You Dip or Chew Tobacco: No; Hx Alcohol Use: No Hx Substance Use: No Preferred Language: Tristanian Communication Ability: Effective Visual Impairment: No Limitations Hearing Ability: Normal Leather Stretcher Required: No Beliefs That Will Affect Care: None marital status: Current Living Situation: Spouse current occupational status: retired Other Information That Helps Us Care for You: No Feels Safe at Home: Yes Safety Concerns: Feels Safe At This Time Childhood Exposure to Second-Hand Smoke: No Diet: regular caffeine: Yes during the past year weight has: remained stable Dental Care, Regularly: Yes Physical Activity Frequency: 3-4 Times per Week Seatbelt Use: always Sunscreen Use: Yes Assistive Devices: Glasses Allergies Allergies Allergy/AdvReac Type Severity Reaction Status Date / Time No Known Drug Allergies Allergy Unknown . Verified 08/02/24 15:39 Home Meds Home Medications Medication Instructions Recorded Confirmed coenzyme Q10 50 mg capsule 200 mg PO QAM 03/26/19 08/02/24 flaxseed oil 1,000 mg capsule 1,000 mg PO TID 03/26/19 08/02/24 omega-3 acid ethyl esters 1 gram 1 cap PO TID #30 caps 03/26/19 08/02/24 capsule psyllium husk 3.4 gram/5.4 gram 1 tbs PO Q2D 03/26/19 08/02/24 oral powder zolpidem 5 mg tablet 5 mg PO HS PRN sleep 07/30/24 08/02/24 Previous Rx's Medication Instructions Recorded melatonin 5 mg capsule 5 mg PO HS PRN sleep #1 cap 03/27/19 cholecalciferol (vitamin D3) 50 50 mcg PO DAILY #90 caps 05/31/23 mcg (2,000 unit) capsule diclofenac sodium 1 % topical gel 2 g topical QID PRN Pain #100 grams 06/26/23 (Voltaren Arthritis Pain) tadalafil 10 mg tablet 10 mg PO DAILY PRN sexual activity 12/27/23 #30 tabs albuterol sulfate 90 mcg/actuation 1 inh inhalation QID PRN shortness 07/02/24 aerosol inhaler of breath or wheezing #8.5 grams doxycycline hyclate 100 mg capsule 100 mg PO BID 10 days #20 caps 07/30/24 amoxicillin 875 mg-potassium 1 tab PO BID #14 tabs 08/03/24 clavulanate 125 mg tablet Results & Data (ED) Vital Signs Vital Signs - 24 hr 08/02/24 12:38 08/02/24 13:16 08/02/24 13:30 Temperature 36.5 C Temperature Source Temporal Artery Scan Pulse Rate 96 H 78 71 Pulse Rate [Apical] Pulse Rhythm Regular Pulse Rhythm [Apical] Pulse Strength [Apical] Respiratory Rate 21 18 Respiratory Effort / Characteristics Spontaneous Respiratory Depth Normal Respiratory Pattern Regular Blood Pressure 134/80 Blood Pressure [Left Arm] Blood Pressure Mean 98 Blood Pressure Mean [Left Arm] Blood Pressure Position [Left Arm] Pulse Oximetry 93 93 Oxygen Delivery Method Room Air Room Air Sepsis Recent Fever Within 48 Hours No Sepsis New/Unexplained Change in Mental Status No Sepsis Action Taken by Nursing No Action Required 08/02/24 14:12 Temperature Temperature Source Pulse Rate Pulse Rate [Apical] 71 Pulse Rhythm Pulse Rhythm [Apical] Regular Pulse Strength [Apical] Normal Respiratory Rate 18 Respiratory Effort / Characteristics Non-Labored Spontaneous Respiratory Depth Normal Respiratory Pattern Regular Blood Pressure Blood Pressure [Left Arm] 124/78 Blood Pressure Mean Blood Pressure Mean [Left Arm] 93 Blood Pressure Position [Left Arm] Lying Pulse Oximetry 94 Oxygen Delivery Method Room Air Sepsis Recent Fever Within 48 Hours Sepsis New/Unexplained Change in Mental Status Sepsis Action Taken by Nursing Laboratory Data 08/03/24 09:00 08/03/24 09:00 Lab Results 08/02/24 08/02/24 Range/Units 13:10 15:30 WBC 10.30 (4.8-10.8) K/ul RBC 3.70 L (4.70-6.10) M/uL Hgb 11.7 L (14.0-18.0) g/dl Hct 33.2 L (42.0-52.0) % MCV 89.7 (80.0-100.0) fL MCH 31.6 (25.0-34.0) pg MCHC 35.2 (32.0-36.0) g/dL RDW Std Deviation 43.7 (36.4-46.3) fL RDW Coeff of Cris 13.4 (11.5-14.5) % Plt Count 348 (130-400) K/uL MPV 9.4 (9.4-12.4) fL Immature Gran % (Auto) 0.5 % Neut % (Auto) 57.7 % Lymph % (Auto) 23.2 % [place] % (Auto) 13.9 % Eos % (Auto) 4.3 % Baso % (Auto) 0.4 % Neut # (Auto) 5.95 (1.40-6.50) K/uL Lymph # (Auto) 2.39 (1.20-3.40) K/uL [place] # (Auto) 1.43 H (0.11-0.59) K/uL Eos # (Auto) 0.44 (0.00-0.50) K/uL Baso # (Auto) 0.04 (0.00-0.20) K/uL Immature Gran # (Auto) 0.05 (0.01-0.20) K/uL ESR 85 H (0-20) mm/hr PT 11.1 (9.0-12.0) Seconds INR 1.0 (0.9-1.1) APTT 29 (21-31) Seconds PTT Ratio 1.1 Sodium 135 L (136-145) mmol/L Potassium 3.7 (3.5-5.1) mmol/L Chloride 102 (98-107) mmol/L Carbon Dioxide 25 (21-32) mmol/L Anion Gap 8 (3-11) BUN 15 (6-23) mg/dl Creatinine 1.00 (0.6-1.4) mg/dl Est Cr Clr Drug Dosing 57.8 ml/min eGFR 77.52 BUN/Creatinine Ratio 15.0 (10-20) Glucose 125 H (70-99(Fasting)) mg/dl Calcium 9.8 (8.6-10.3) mg/dl Total Bilirubin 0.8 (0.2-1.0) mg/dl AST 19 (13-39) U/L ALT 14 (7-52) U/L Alkaline Phosphatase 66 (34-104) U/L Troponin I High Sens 4.7 (0-20) pg/ml C-Reactive Protein 9.80 H (0-0.5) mg/dl Total Protein 7.1 (6.0-8.3) gm/dl Albumin 3.7 (3.4-5.0) gm/dl Globulin 3.4 (2.5-4.0) gm/dl Albumin/Globulin Ratio 1.1 (0.9-2) Procalcitonin 0.04 (0-0.5) ng/ml Nasal Screen MRSA (PCR) Negative (Negative) Adenovirus (PCR) Not Detected (NotDetected) B. pertussis DNA (PCR) Not Detected (NotDetected) B.parapertussis DNA PCR Not Detected (NotDetected) C. pneumoniae DNA (PCR) Not Detected (NotDetected) Coronavirus OC43 (PCR) Not Detected (NotDetected) Coronavirus HKU1 (PCR) Not Detected (NotDetected) Coronavirus 229E (PCR) Not Detected (NotDetected) SARS-CoV-2 (PCR) Not Detected (NotDetected) Coronavirus NL63 (PCR) Not Detected (NotDetected) Human Metapneumovir PCR Not Detected (NotDetected) Influenza Type A (PCR) Not Detected (NotDetected) Influenza Type B (PCR) Not Detected (NotDetected) M. pneumoniae (PCR) Not Detected (NotDetected) Parainfluenza 1 (PCR) Not Detected (NotDetected) Parainfluenza 2 (PCR) Not Detected (NotDetected) Parainfluenza 3 (PCR) Not Detected (NotDetected) Parainfluenza 4 (PCR) Not Detected (NotDetected) RSV (PCR) Not Detected (NotDetected) Entero/Rhino (PCR) Not Detected (NotDetected) Administered Medications Discontinued Medications Acetaminophen (Acetaminophen 325 Mg Tab) 650 mg PO Q4H PRN PRN Reason: pain/fever Stop: 09/01/24 22:23 Last Admin: 08/03/24 05:13 Dose: 650 mg Documented By: MARINA Albuterol (Albut/Ipratrop 3mg/0.5mg Neb 3 Ml Vial) 3 ml NEB Q6R ROBBIE; Protocol Stop: 09/02/24 12:59 Last Admin: 08/03/24 12:56 Dose: 3 ml Documented By: JACK Dextromethorphan Polymer Complex (Dextromethorphan Polymr Complx 30 Mg/5 Ml Udp) 30 mg PO Q12H PRN PRN Reason: Cough Stop: 09/02/24 00:18 Last Admin: 08/03/24 05:22 Dose: 30 mg Documented By: MARINA Doxycycline Hyclate (Doxycycline Hyclate 100 Mg Cap) 100 mg PO BID [facility] Stop: 08/07/24 22:23 Last Admin: 08/03/24 08:13 Dose: 100 mg Documented By: Admin: 08/02/24 23:00 Dose: 100 mg Documented By: MARINA Enoxaparin Sodium (Enoxaparin Inj 40 Mg/0.4 Ml Syr) 40 mg SQ QPM [facility] Stop: 09/01/24 20:59 Last Admin: 08/02/24 23:07 Dose: Not Given Documented By: MARINA Guaifenesin (Guaifenesin 600 Mg Tabcr) 1,200 mg PO Q12 [facility] Stop: 09/02/24 08:59 Last Admin: 08/03/24 08:13 Dose: 1,200 mg Documented By: JIMMIE Sodium Chloride (Nss) 1,000 mls @ 125 mls/hr IV .Q8H ROBBIE Stop: 08/02/24 22:29 Last Infusion: 08/02/24 23:18 Dose: Infused Documented By: Admin: 08/02/24 14:50 Dose: 125 mls/hr Documented By: RADHIKA Vancomycin HCl 1,500 mg/ (Sodium Chloride) 530 mls @ 200 mls/hr IV NOW ONE Stop: 08/02/24 17:54 Last Infusion: 08/02/24 19:45 Dose: Infused Documented By: Admin: 08/02/24 16:50 Dose: 200 mls/hr Documented By: MR Piperacillin Sod/Tazobactam Sod (Zosyn) 4.5 gm in 100 mls @ 200 mls/hr IV NOW ONE; Protocol Stop: 08/02/24 15:45 Last Infusion: 08/02/24 16:49 Dose: Infused Documented By: Admin: 08/02/24 15:31 Dose: 200 mls/hr Documented By: MR Piperacillin Sod/Tazobactam Sod (Zosyn) 4.5 gm in 100 mls @ 25 mls/hr IV Q8 ROBBIE; Protocol Stop: 08/07/24 22:29 Last Infusion: 08/03/24 09:28 Dose: Infused Documented By: Admin: 08/03/24 05:28 Dose: 25 mls/hr Documented By: Infusion: 08/03/24 03:26 Dose: Infused Documented By: Admin: 08/02/24 23:00 Dose: 25 mls/hr Documented By: MARINA Ioversol (Optiray 320 125ml) 115 ml IV ONCE ONE Stop: 08/02/24 14:46 Last Admin: 08/02/24 14:46 Dose: 115 ml Documented By: DILLON Zolpidem Tartrate (Zolpidem Tartrate 5 Mg Tab) 5 mg PO HS PRN PRN Reason: Sleep Stop: 09/01/24 22:59 Last Admin: 08/02/24 23:11 Dose: 5 mg Documented By: MARINA Imaging Data Radiologist's Impression: Chest X-Ray 08/02/24 12:42 XR chest 1V not portable CLINICAL HISTORY: Chest pain, nonspecific COMPARISON STUDY: 07/30/2024 FINDINGS: Heart size and pulmonary vasculature are normal. There is stable stranding and patchy opacity at the right lung base. No pleural effusion or pneumothorax. IMPRESSION: Stable pneumonia right lung base. ACT 112: Negative or not required by law. Electronically signed by: Remi Portillo M.D. 08/02/2024 1:53 PM Chest CTA 08/02/24 14:23 CT angio chest PE protocol CT DOSE: 722.5 mGy.cm HISTORY: PE. TECHNIQUE: Multiple CTA images of the chest were obtained after the intravenous administration of 115 ml Optiray. Coronal and sagittal MIPS were obtained from the axial data set and were submitted for review. All measurements were obtained according to NASCET criteria. A dose lowering technique was utilized adhering to the principles of ALARA. COMPARISON STUDY: 07/23/2024 FINDINGS: There is bandlike and patchy consolidation throughout the right lower lobe and a small portion of the posterior right middle and inferior right upper lobes, increased. There is increased patchy consolidation posterior left lung base. There is interval mild scattered patchy groundglass opacity at the upper lung lobes. Findings are consistent with progressive pneumonia. No pleural effusion or pneumothorax. No pulmonary embolism seen. No thoracic aortic dissection or aneurysm. No pericardial effusion. There is interval mild mediastinal adenopathy with largest lymph node and a subcarinal node measuring 2 cm. There is a 1 cm hypodense nodule at the right thyroid lobe. There are diffuse thoracic spine degenerative changes. IMPRESSION: 1. No pulmonary embolism seen. 2. Increased bilateral pneumonia. Recommend follow-up chest CT in 3 months to make sure that this resolves without underlying pulmonary nodule. ACT 112: Positive. There are findings on this exam that require communication between the performing entity and the patient following Patient Test Result Information Act ([place] Act 112) guidelines. The above report was generated using voice recognition software. It may contain grammatical, syntax or spelling errors. Electronically signed by: Remi Portillo M.D. 08/02/2024 3:09 PM Discharge Plan Visit Data Chief Complaint: Referred by Doctor Stated Complaint: ADMIT REQ/DOC REF ED Provider: Mandi Parekh Discharge Problem: Multifocal pneumonia, Failure of outpatient treatment Patient Disposition: Admitted As Inpatient Discharge Instructions Interventions: ED Discharge Assessment Last Done: 08/02/24 20:30
[2024-08-02 13:45] LABS: Albumin Globulin Ratio 1.1 (0.9-2); Albumin Level 3.7 gm/dl (3.4-5.0); Bilirubin,Total 0.8 mg/dl (0.2-1.0); Calcium 9.8 mg/dl (8.6-10.3); Creatinine Clr Calc Pharmacy 57.8 ml/min; Globulin 3.4 gm/dl (2.5-4.0); Potassium 3.7 mmol/L (3.5-5.1); Total Protein 7.1 gm/dl (6.0-8.3)
[2024-08-02 13:48] LABS: Partial Thromboplastin Ratio 1.1; Partial Thromboplastin Time 29 Seconds (21-31); Prothrombin Time 11.1 Seconds (9.0-12.0); Troponin I High Sensitivity 4.7 pg/ml (0-20)
--- NOTE | 2024-08-02 13:55 | XRay Report ---
XR chest 1V not portable CLINICAL HISTORY: Chest pain, nonspecific COMPARISON STUDY: 07/30/2024 FINDINGS: Heart size and pulmonary vasculature are normal. There is stable stranding and patchy opaci ty at the right lung base. No pleural effusion or pneumothorax. IMPRESSION: Stable pneumonia right lung base. ACT 112: Negative or not required by law. Electronically signed by: Remi Portillo M.D. 08/02/2024 1:53 PM
[2024-08-02 14:24] LABS: Adenovirus PCR Not Detected (NotDetected); Bordetella parapertussis PCR Not Detected (NotDetected); Bordetella pertussis PCR Not Detected (NotDetected); Chlamydia pneumoniae PCR Not Detected (NotDetected); Coronavirus 229E PCR Not Detected (NotDetected); Coronavirus CoV-2 (COVID19)PCR Not Detected (NotDetected); Coronavirus HKU1 PCR Not Detected (NotDetected); Coronavirus NL63 PCR Not Detected (NotDetected); Coronavirus OC43PCR Not Detected (NotDetected); Human Metapneumovirus PCR Not Detected (NotDetected); Influenza A PCR Not Detected (NotDetected); Influenza B PCR Not Detected (NotDetected); Mycoplasma pneumoniae PCR Not Detected (NotDetected); Parainfluenza Virus 1 PCR Not Detected (NotDetected); Parainfluenza Virus 2 PCR Not Detected (NotDetected); Parainfluenza Virus 3 PCR Not Detected (NotDetected); Parainfluenza Virus 4 PCR Not Detected (NotDetected); Respiratory Syncytial VirusPCR Not Detected (NotDetected); Rhinovirus/Enterovirus PCR Not Detected (NotDetected)
[2024-08-02] MEDS: OPTIRAY 320 125ml IV ONE (14:46)
[2024-08-02] MEDS: SODIUM CHLORIDE 0.9% 1,000 ML IV SCH (14:50)
--- NOTE | 2024-08-02 15:10 | CT Scan Report ---
CT angio chest PE protocol CT DOSE: 722.5 mGy.cm HISTORY: PE. TECHNIQUE: Multiple CTA images of the chest were obtained after the intravenous administration of 115 ml Optiray. Coronal and sagittal MIPS were obtained from the axial data set and were submitted for review. All measurements were obtained according to NASCET criteria. A dose lowering technique was u tilized adhering to the principles of ALARA. COMPARISON STUDY: 07/23/2024 FINDINGS: There is bandlike and patchy consolidation throughout the right lower lobe and a small port ion of the posterior right middle and inferior right upper lobes, increased. There is increased patch y consolidation posterior left lung base. There is interval mild scattered patchy groundglass opacity at the upper lung lobes. Findings are consistent with progressive pneumonia. No pleural effusion or pneumothorax. No pulmonary embolism seen. No thoracic aortic dissection or aneurysm. No pericardial e ffusion. There is interval mild mediastinal adenopathy with largest lymph node and a subcarinal node measuring 2 cm. There is a 1 cm hypodense nodule at the right thyroid lobe. There are diffuse thoraci c spine degenerative changes. IMPRESSION: 1. No pulmonary embolism seen. 2. Increased bilateral pneumonia. Recommend follow-up chest CT in 3 months to make sure that this res olves without underlying pulmonary nodule. ACT 112: Positive. There are findings on this exam that require communication between the performing entity and the patient following Patient Test Result Information Act ([place] Act 112) guidelines. The above report was generated using voice recognition software. It may contain grammatical, syntax o r spelling errors. Electronically signed by: Remi Portillo M.D. 08/02/2024 3:09 PM
[2024-08-02] MEDS ORDERED: VANCOMYCIN CONSULT ACTIVE PRN (15:16)
[2024-08-02] MEDS: PIPERACILLIN/TAZOBACTAM 4.5 GM/100 ML BAG IV ONE (15:31)
--- NOTE | 2024-08-02 16:00 | History & Physical Report ---
Date of Service August 02, 2024 Assessment & Plan (1) Multifocal pneumonia: Plan 79-year-old male presents to the ER with shortness of breath and cough ongoing despite 3 courses of antibiotics #Multifocal pneumonia Added procalcitonin to prior labs MRSA nasal swab pending - will discontinue vancomycin if this is negative Admission due to lack of improvement after x 3 courses of outpatient antibiotics, however on discussion with pulmonology suspect reason for lack of improvement due to aspiration given appearance on CT Mainly right lower lobe concerning for aspiration therefore admit for speech and language therapy evaluation Will escalate antibiotics to Zosyn with previously prescribed doxycycline to cover for aspiration although not clearly a failure of antibiotics given normal white blood count and symptoms not worsening since Monday; just not getting better. If procalcitonin negative and no overt aspirations on SLT assessment could consider discharge on Augmentin + doxycycline for follow up with [facility] as outpatient +/- pulmonology follow up Guaifenesin, incentive spirometer and flutter valve to aid with coughing up mucus VTE prophylaxis - Lovenox 40 mg subcu daily Diet - regular Disposition - observation on [facility] Admission and Anticipated Discharge Date Admission Date: August 02, 2024 History of Present Illness Chief Complaint: Shortness of breath Primary Care Provider: Purvi Chao MD Obdulio Roe is a 79-year-old male who presents to the ER with shortness of breath and nonproductive cough. Initial symptoms started after his became sick with a similar illness around June 15. Initially with a nonproductive cough and mild shortness of breath. His symptoms became progressively worse coughing up clear sputum but much more fatigued. His PCP started him on Augmentin and azithromycin on June 21. He reports no improvement with this. Subsequently treated with prednisone and albuterol with no significant difference on July 02. He continued to have symptoms and he was given a course of Levaquin on July 23. Again this did not seem to help his symptoms and he went to the emergency room on July 30 where he was treated with ceftriaxone and doxycycline and discharged on cefdinir and doxycycline. He does not feel any worse but has also not been feeling any better and called his PCP who recommended returning to the emergency room for admission for IV antibiotics. He does note prior night sweats have been improving. The cough is mostly when he sits down. Productive of clear sputum. No fevers or chills. No known underlying COPD or asthma. Former smoker - quit 50 years ago, smoked for 6 to 8 years at most 1 pack a week. No prior history of severe or difficult to treat infections. No significant history of pneumonia. He denies coughing or choking after eating. Allergies Allergy/AdvReac Type Severity Reaction Status Date / Time No Known Drug Allergies Allergy Unknown . Verified 08/02/24 15:39 Home Medications Medication Instructions Recorded Confirmed Type coenzyme Q10 50 mg capsule 200 mg PO QAM 03/26/19 08/02/24 History flaxseed oil 1,000 mg capsule 1,000 mg PO TID 03/26/19 08/02/24 History omega-3 acid ethyl esters 1 gram 1 cap PO TID #30 caps 03/26/19 08/02/24 History capsule psyllium husk 3.4 gram/5.4 gram 1 tbs PO Q2D 03/26/19 08/02/24 History oral powder melatonin 5 mg capsule 5 mg PO HS PRN sleep #1 cap 03/27/19 08/02/24 Rx cholecalciferol (vitamin D3) 50 50 mcg PO DAILY #90 caps 05/31/23 08/02/24 Rx mcg (2,000 unit) capsule diclofenac sodium 1 % topical gel 2 g topical QID PRN Pain #100 grams 06/26/23 08/02/24 Rx (Voltaren Arthritis Pain) tadalafil 10 mg tablet 10 mg PO DAILY PRN sexual activity 12/27/23 08/02/24 Rx #30 tabs albuterol sulfate 90 mcg/actuation 1 inh inhalation QID PRN shortness 07/02/24 08/02/24 Rx aerosol inhaler of breath or wheezing #8.5 grams cefdinir 300 mg capsule 300 mg PO BID 10 days #20 caps 07/30/24 08/02/24 Rx doxycycline hyclate 100 mg capsule 100 mg PO BID 10 days #20 caps 07/30/24 08/02/24 Rx zolpidem 5 mg tablet 5 mg PO HS PRN sleep 07/30/24 08/02/24 History fluticasone fur. 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 Ellison [facility] Anemia Milo of foot Hyperglycemia Stress incontinence Vitamin D deficiency disease Left leg pain History of hyperlipidemia Arthralgia of multiple sites Anxiety Medical History Left axillary pain Osteoarthritis History of anemia COVID-19 virus detected Chronic prostatitis without hematuria BPH (benign prostatic hyperplasia) Headache Insomnia Lumbar radiculopathy Seborrheic keratosis Surgical History History of right cataract surgery Hx of prostatectomy History of esophagogastroduodenoscopy (EGD) History of colonoscopy S/P tonsillectomy S/P hernia repair S/P cholecystectomy Family History Father Colorectal cancer Mother Stroke Brother COPD (chronic obstructive pulmonary disease) Denies family history of Ovarian cancer Prostate cancer Diabetes Bipolar disorder Myocardial infarction Social History Smoking Status: Never smoker Tobacco Type: Declines Second Hand Exposure: No; Do You Dip or Chew Tobacco: No; Hx Alcohol Use: Yes Alcohol type: wine Alcohol Intake Frequency: 2-3 x/Week Hx Substance Use: No Preferred Language: [place] Communication Ability: Effective Visual Impairment: No Limitations Hearing Ability: Normal Marketing Copywriter Required: No Beliefs That Will Affect Care: None marital status: Current Living Situation: Spouse current occupational status: retired Feels Safe at Home: Yes Childhood Exposure to Second-Hand Smoke: No Diet: regular caffeine: Yes during the past year weight has: remained stable Dental Care, Regularly: Yes Physical Activity Frequency: 3-4 Times per Week Seatbelt Use: always Sunscreen Use: Yes Assistive Devices: Glasses Review of Systems Review of Systems: All systems reviewed & are unremarkable except as noted in HPI & below Physical Exam Constitutional: WD/WN, vitals as above ENMT: external ear and nose normal, oropharynx normal Respiratory: normal respiratory effort; no respiratory distress Auscultation: + crackles (Bibasal); breath sounds present, no diminished lung sounds and no wheezes Cardiovascular: RRR, no murmur, no edema Gastrointestinal (Abdomen): normal bowel sounds, soft, nontender, no hepatosplenomegaly Musculoskeletal: no cyanosis or clubbing, extremities motor strength 5/5 Skin: no rashes, warm and dry Neurologic: moves all extremities and awake; not confused Psychiatric: A+Ox3, euthymic affect Results & Data Results & Data Vital Signs (Past 12 Hours) Vital Signs Temp Pulse Pulse Resp BP BP Pulse Ox 08/02/24 15:30 79 22 154/76 H 94 08/02/24 14:12 71 18 124/78 94 08/02/24 13:30 71 18 93 08/02/24 13:16 78 08/02/24 12:38 36.5 C 96 H 21 134/80 93 O2 Del Method 08/02/24 15:30 Room Air 08/02/24 14:12 Room Air 08/02/24 13:30 Room Air 08/02/24 13:16 08/02/24 12:38 Room Air Laboratory Results Abnormal lab results 08/02/24 Range/Units 13:10 RBC 3.70 L (4.70-6.10) M/uL Hgb 11.7 L (14.0-18.0) g/dl Hct 33.2 L (42.0-52.0) % [place] # (Auto) 1.43 H (0.11-0.59) K/uL ESR 85 H (0-20) mm/hr Sodium 135 L (136-145) mmol/L Glucose 125 H (70-99(Fasting)) mg/dl C-Reactive Protein 9.80 H (0-0.5) mg/dl Diagnostic Findings XR chest 1V not portable CLINICAL HISTORY: Chest pain, nonspecific COMPARISON STUDY: 07/30/2024 FINDINGS: Heart size and pulmonary vasculature are normal. There is stable stranding and patchy opacity at the right lung base. No pleural effusion or pneumothorax. IMPRESSION: Stable pneumonia right lung base. CT angio chest PE protocol CT DOSE: 722.5 mGy.cm HISTORY: PE. TECHNIQUE: Multiple CTA images of the chest were obtained after the intravenous administration of 115 ml Optiray. Coronal and sagittal MIPS were obtained from the axial data set and were submitted for review. All measurements were obtained according to NASCET criteria. A dose lowering technique was utilized a dhering to the principles of ALARA. COMPARISON STUDY: 07/23/2024 FINDINGS: There is bandlike and patchy consolidation throughout the right lower lobe and a small portion of the posterior right middle and inferior right upper lobes, increased. There is increased patchy consolidation posterior left lung base. There is interval mild scattered patchy groundglass opacity at the upper lung lobes. Findings are consistent with progressive pneumonia. No pleural effusion or pneumothorax. No pulmonary embolism seen. No thoracic aortic dissection or aneurysm. No pericardial effusion. There is interval mild mediastinal adenopathy with largest lymph node and a subcarinal node measuring 2 cm. There is a 1 cm hypodense nodule at the right thyroid lobe. There are diffuse thoracic spine degenerative changes. IMPRESSION: 1. No pulmonary embolism seen. 2. Increased bilateral pneumonia. Recommend follow-up chest CT in 3 months to make sure that this resolves without underlying pulmonary nodule. Medications Administered ER medications given: Normal saline @ 125 ml/hr Vancomycin 1500 mg IV Zosyn 4.5 g IV ECG Rate (beats per minute): 88 Rhythm: normal sinus Findings: + LAFB and + RBBB Comparison ECG Date: from (July 30, 2024) Change: no significant change Code Status & VTE Plan Code Status Full VTE Prophylaxis Plan VTE Prophylaxis will be ordered: Yes PG Care Time/CCT Total # of Minutes Spent Total Time Spent with Patient: Total time spent is greater than 50% in coordination of care (as documented) at patient's floor/unit and/or counseling patient: Coding Level of Care Code 03246 INT INP/OBS CARE 3/75MIN Diagnoses Multifocal pneumonia J18.9
[2024-08-02 16:11] LABS: C Reactive Protein 9.8 mg/dl (0-0.5)
--- NOTE | 2024-08-02 16:27 | Electrocardiogram Report ---
Test Reason : Blood Pressure : */* mmHG Vent. Rate : 88 BPM Atrial Rate : 88 BPM P-R Int : 188 ms QRS Dur : 140 ms QT Int : 358 ms P-R-T Axes : 35 -43 -5 degrees QTcB Int : 433 ms Normal sinus rhythm Left anterior fascicular block Right bundle branch block Abnormal ECG When compared with ECG of 30-Jul-2024 10:12, No significant change was found Confirmed by Trent Matias ([id number]) on 08/02/2024 4:26:58 PM Referred By: Confirmed By: Trent Matias
[2024-08-02] MEDS: VANCOMYCIN HCL 1,500 MG in SODIUM CHLORIDE 0.9% 500 ML IV ONE (16:50)
[2024-08-02] MEDS ORDERED: PIPERACILLIN/TAZOBACTAM 4.5 GM/100 ML BAG IV SCH (22:24)
[2024-08-02] MEDS ORDERED: ONDANSETRON INJ 2 MG/ML 2 ML VIAL IV PRN (22:24)
[2024-08-02] MEDS ORDERED: DOXYCYCLINE HYCLATE 100 MG CAP PO SCH (22:24)
[2024-08-02] MEDS ORDERED: MELATONIN 3 MG TAB PO PRN (22:27)
[2024-08-02] MEDS: PIPERACILLIN/TAZOBACTAM 4.5 GM/100 ML BAG IV SCH (23:00)
[2024-08-02] MEDS: DOXYCYCLINE HYCLATE 100 MG CAP PO SCH (23:00)
[2024-08-02] MEDS: ENOXAPARIN INJ 40 MG/0.4 ML SYR SQ SCH (23:07)
[2024-08-02] MEDS: ZOLPIDEM TARTRATE 5 MG TAB PO PRN (23:11)
[2024-08-03] MEDS: ACETAMINOPHEN 325 MG TAB PO PRN (05:13)
[2024-08-03] MEDS: DEXTROMETHORPHAN POLYMR COMPLX 30 MG/5 ML UDP PO PRN (05:22)
[2024-08-03 07:33] VITALS: BP 126/73; RESP 18; TEMP 98.1
[2024-08-03] MEDS: guaiFENesin 600 MG TABCR PO SCH (08:13)
[2024-08-03 09:22] LABS: Basophils # (auto) 0.04 K/uL (0.00-0.20); Basophils % (auto) 0.5 %; Eosinophils # (auto) 0.44 K/uL (0.00-0.50); Eosinophils % (auto) 5.1 %; Hematocrit (blood only) 31.6 % (42.0-52.0); Hemoglobin 10.7 g/dl (14.0-18.0); Immature Granulocytes # (auto) 0.05 K/uL (0.01-0.20); Immature Granulocytes % (auto) 0.6 %; Lymphocytes # (auto) 1.51 K/uL (1.20-3.40); Lymphocytes % (auto) 17.5 %; Mean Corpuscular Hemoglobin 30.7 pg (25.0-34.0); Mean Corpuscular Hgb Conc 33.9 g/dL (32.0-36.0); Mean Corpuscular Volume 90.5 fL (80.0-100.0); Mean Platelet Volume 9.2 fL (9.4-12.4); Monocytes # (auto) 0.98 K/uL (0.11-0.59); Monocytes % (auto) 11.4 %; Neutrophils # (auto) 5.59 K/uL (1.40-6.50); Neutrophils % (auto) 64.9 %; Platelet Count 315 K/uL (130-400); RDW Coefficient of Variation 13.6 % (11.5-14.5); Red Blood Count 3.49 M/uL (4.70-6.10); White Blood Count 8.61 K/ul (4.8-10.8)
[2024-08-03 09:38] LABS: BUN Creatinine Ratio 12.5 (10-20); C Reactive Protein 9.14 mg/dl (0-0.5); Creatinine Clr Calc Pharmacy 51.6 ml/min; Potassium 3.7 mmol/L (3.5-5.1)
[2024-08-03] MEDS: ALBUT/IPRATROP 3MG/0.5MG NEB 3 ML VIAL NEB SCH (12:56)
[2024-08-03 12:58] VITALS: O2SAT 97
--- NOTE | 2024-08-03 14:22 | Discharge Summary ---
Discharge Summary Date of Service August 03, 2024 Principal Dx & Hospital Course #1 = Principal Diagnosis (1) Multifocal pneumonia: Plan 79-year-old male presents to the ER with shortness of breath and cough ongoing despite 3 courses of antibiotics #Multifocal pneumonia Outpatient treatment includes Augmentin, Azithromycin, Prednisone, Albuterol inhaler, Trelegy inhaler, Levaquin, Cefdinir, and Doxycycline. Patient not necessarily worsening in symptoms just not improving. CXR: stable pneumonia right lung base. Chest CTA: No PE. Increase b/l pneumonia. --> follow up CT in 3 months to ensure resolution w/o underlying pulm nodule. CBC w/o leukocytosis. BMP stable. ESR 85 --> 72 CRP 9.8 --> 9.14 Procal 0.11. IV Zosyn and PO doxy inpatient --> converted to Augmentin BID and finish course of Doxy BID outpatient. (stop previously prescribed Cefdinir) Discussed w/ pulmonology on admission --> concern for aspiration given CT appearance & lack of appearance. Speech therapy eval -> patient w/ low concern for aspiration. He is sto complete [facility] as outpatient. Pulm referral sent on discharge. Continue Guaifenesin, incentive spirometer & flutter valve on discharge to aid w/ coughing up mucus. Follow up w/ PCP on discharge for further recs. Discharge discussion extensively w/ 08/03. Admission HPI Per Admitting Provider Obdluio Roe is a 79-year-old male who presents to the ER with shortness of breath and nonproductive cough. Initial symptoms started after his became sick with a similar illness around June 15. Initially with a nonproductive cough and mild shortness of breath. His symptoms became progressively worse coughing up clear sputum but much more fatigued. His PCP started him on Augmentin and azithromycin on June 21. He reports no improvement with this. Subsequently treated with prednisone and albuterol with no significant difference on July 02. He continued to have symptoms and he was given a course of Levaquin on July 23. Again this did not seem to help his symptoms and he went to the emergency room on July 30 where he was treated with ceftriaxone and doxycycline and discharged on cefdinir and doxycycline. He does not feel any worse but has also not been feeling any better and called his PCP who recommended returning to the emergency room for admission for IV antibiotics. He does note prior night sweats have been improving. The cough is mostly when he sits down. Productive of clear sputum. No fevers or chills. No known underlying COPD or asthma. Former smoker - quit 50 years ago, smoked for 6 to 8 years at most 1 pack a week. No prior history of severe or difficult to treat infections. No significant history of pneumonia. He denies coughing or choking after eating. Discharge Exam Constitutional WD/WN, vitals as above Eyes PERRL, conjunctivae normal, anicteric sclerae Respiratory normal respiratory effort, lungs clear to auscultation Cardiovascular RRR, no murmur, no edema Psychiatric A+Ox3, euthymic affect Discharge Plan Discharge Items Patient Disposition: Home - Self-Care Reason For Visit: ASPIRATION PNEUMONIA Discharge Diagnosis: Pneumonia Activity: Resume your previous activity Non-emergency contact: Primary Care Provider Call non-emergency contact if: you have any medication questions and your symptoms worsen Follow-up/Referrals: Purvi Chao MD [Primary Care Provider] - Wade Gilmore MD [Physician] - Diet: Regular Addtl Attending Provider Instructions: Mr. Roe, You were recently hospitalized for ongoing pneumonia. you were treated with IV antibiotics and also evaluated by a speech therapist. Please see recommendations below regarding your discharge. Please finish your course of Doxycycline twice daily over the next 7 days. Your first dose at home will be this evening, 08/03. Please do not take the Cefdinir - we are switching this antibiotic. Please take Augmentin twice daily for the next 7 days. Your first dose at home will be this evening, 08/03. Please take your antibiotics with food and a probiotic to avoid GI upset. Please use your albuterol inhaler as needed at home for shortness of breath or wheezing. Please use Mucinex twice daily to aide with your cough and congestion. Please follow up with speech therapy outpatient for a swallow study. You have been referred to the pulmonology office. If you do not hear from their office by 08/07 for an appointment please contact them. Their phone number is above. The remainder of your outpatient medications you may continue. Please follow up with your PCP within 1-2 weeks of discharge for further recommendations. - you will require at repeat chest CT in 3 months to reassess your lungs. You can discuss this at your office visit with your PCP. If you develop any worsening shortness of breath, fever, chills, chest pain please report back to the ER for further care. Sincerely, Adelaida Dietz PA-C Pending Studies at Discharge: No Stand-Alone Forms: My [facility], Smoking Cessation Medications and DC Order Prescriptions: New amoxicillin-pot clavulanate 875-125 mg tablet 1 tab PO BID Qty: 14 0RF Continued cholecalciferol (vitamin D3) 50 mcg (2,000 unit) capsule 50 mcg PO DAILY Qty: 90 3RF diclofenac sodium [Voltaren Arthritis Pain] 1 % gel 2 g topical QID PRN (Reason: Pain) Qty: 100 1RF tadalafil 10 mg tablet 10 mg PO DAILY PRN (Reason: sexual activity) Qty: 30 11RF Rx Instructions: administer approximately 30min before sexual activity; do not use more than 1 dose per 24hrs psyllium husk 3.4 gram/5.4 gram powder 1 tbs PO Q2D coenzyme Q10 50 mg capsule 200 mg PO QAM omega-3 acid ethyl esters 1 gram capsule 1 cap PO TID Qty: 30 flaxseed oil 1,000 mg capsule 1,000 mg PO TID melatonin 5 mg capsule 5 mg PO HS PRN (Reason: sleep ) Qty: 1 0RF albuterol sulfate 90 mcg/actuation HFA aerosol inhaler 1 inh inhalation QID PRN (Reason: shortness of breath or wheezing) Qty: 8.5 4RF zolpidem 5 mg tablet 5 mg PO HS PRN (Reason: sleep) doxycycline hyclate 100 mg capsule 100 mg PO BID 10 Days Qty: 20 0RF Rx Instructions: Start Date 07/30/24 x10 day supply Discontinued cefdinir 300 mg capsule 300 mg PO BID 10 Days Qty: 20 0RF Rx Instructions: Start Date 07/30/24 x10 day supply Trelegy Ellipta 100-62.5-25 mcg Blister With Device 0 inh INHALATION DAILY Rx Instructions: Pt unsure of strength at this date/time. Has been using samples. Discharge Orders: Discharge Order (Routine); Ordered 08/03/24 Ordered By: Adelaida Dietz Admission Data Admit Date/Time: 08/02/24 16:56 Attending Provider: Singh Pond Admit Provider: Daren Lloyd Primary Care Provider: Purvi Chao V. Other Providers: Daren Lloyd Other Interventions: Discharge Summary Assessment (RN) Last Done: 08/03/24 14:27 Hospital Stay Data Consultations 08/02/24 15:26 ED Decision to Admit Stat Diagnostic Imagining Performed 08/02/24 14:23 CT angio chest PE protocol Stat Pending Results Patient Have Any Pending Studies at Discharge: No Discharge Instructions Given to Patient (Per Discharging Provider) Mr. Roe, Arsalan were recently hospitalized for ongoing pneumonia. you were treated with IV antibiotics and also evaluated by a speech therapist. Please see recommendations below regarding your discharge. Please finish your course of Doxycycline twice daily over the next 7 days. Your first dose at home will be this evening, 08/03. Please do not take the Cefdinir - we are switching this antibiotic. Please take Augmentin twice daily for the next 7 days. Your first dose at home will be this evening, 08/03. Please take your antibiotics with food and a probiotic to avoid GI upset. Please use your albuterol inhaler as needed at home for shortness of breath or wheezing. Please use Mucinex twice daily to aide with your cough and congestion. Please follow up with speech therapy outpatient for a swallow study. You have been referred to the pulmonology office. If you do not hear from their office by 08/07 for an appointment please contact them. Their phone number is above. The remainder of your outpatient medications you may continue. Please follow up with your PCP within 1-2 weeks of discharge for further recommendations. - you will require at repeat chest CT in 3 months to reassess your lungs. You can discuss this at your office visit with your PCP. If you develop any worsening shortness of breath, fever, chills, chest pain please report back to the ER for further care. Sincerely, Adelaida Dietz PA-C Total Time Total Time Spent Total Time Spent (In Minutes): 60 Total Time Includes: Examination of the Patient, Discharge Planning and Medication Reconciliation Coding Level of Care Code 35130 INP/OBS DISCH >30 MIN Diagnoses Multifocal pneumonia J18.9
[2024-08-03 14:30] VITALS: PULSE 78
== END 2024-08-03 14:58 | disposition home or self-care (01) ==
LOC: EDINP 12:29 → ED 12:29 → SUATTDRO 16:56 → 3N 20:30